=== PATIENT | male | born 1995 | race Two or more races ===

== ENCOUNTER 2019-02-28 00:48 | Emergency (ER) | payer BC ==
[~2019-02-28] VITALS: Ht 182.9 cm; Wt 81.6 kg
--- NOTE | 2019-02-28 00:52 | ED.ADGEN ---
Adult General Chief Complaint Chief Complaint ".. I was playing a video game..and got mad and kicked the bed,.,.and hurt my foot.," HPI HPI Patient is a 24 year old male who presents with above hx and complaints of foot pain distal 5th meta tarsal Rt. foot. Pt. unable to bear wt. because of pain. Distal neurovascular intact. + foot squeeze marked increase in pain. Review of Systems Review of Systems Constitutional: Denies fever or chills [] Eyes: Denies change in visual acuity, redness, or eye pain [] HENT: Denies nasal congestion or sore throat [] Respiratory: Denies cough or shortness of breath [] Cardiovascular: No additional information not addressed in HPI [] GI: Denies abdominal pain, nausea, vomiting, bloody stools or diarrhea [] : Denies dysuria or hematuria [] Musculoskeletal: Denies back pain or joint pain [complaints of right foot pain Integument: Denies rash or skin lesions [] Neurologic: Denies headache, focal weakness or sensory changes [] Endocrine: Denies polyuria or polydipsia [] All other systems were reviewed and found to be within normal limits, except as documented in this note. Family History Family History Noncontributory Current Medications Current Medications Current Medications Medications (Trade) Dose Ordered Sig/Cal Start Time Stop Time Status Last Admin Dose Admin Hydrocodone Bitartrate/ Ibuprofen (Vicoprofen 7.5-200) 2 tab 1X ONCE 02/28/19 01:30 02/28/19 02:06 DC 02/28/19 01:35 2 TAB Allergies Allergies Allergies Coded Allergies Type Severity Reaction Last Updated Verified No Known Drug Allergies 02/28/19 No Physical Exam Physical Exam Constitutional: Well developed, well nourished, no acute distress, non-toxic appearance. [] HENT: Normocephalic, atraumatic, bilateral external ears normal, oropharynx moist, no oral exudates, nose normal. [] Eyes: PERRLA, EOMI, conjunctiva normal, no discharge. [] Neck: Normal range of motion, no tenderness, supple, no stridor. [] Cardiovascular:Heart rate regular rhythm, no murmur [] Lungs & Thorax: Bilateral breath sounds clear to auscultation [] Abdomen: Bowel sounds normal, soft, no tenderness, no masses, no pulsatile masses. [] Skin: Warm, dry, no erythema, no rash. [] Back: No tenderness, no CVA tenderness. [] Extremities: No tenderness, no cyanosis, no clubbing, ROM intact, no edema. [] Except findings of foot pain as per history of present illness Neurologic: Alert and oriented X 3, normal motor function, normal sensory function, no focal deficits noted. [] Psychologic: Affect normal, judgement normal, mood normal. [] Current Patient Data Vital Signs Vital Signs Date Time Temp Pulse Resp B/P (MAP) Pulse Ox O2 Delivery O2 Flow Rate FiO2 02/28/19 01:00 98.6 73 18 100 Room Air EKG EKG [] Radiology/Procedures Radiology/Procedures My interpretation x-ray shows possible distal fifth metatarsal fracture- nondisplaced[] Course & Med Decision Making Course & Med Decision Making Pertinent Labs and Imaging studies reviewed. (See chart for details). Distal neurovascular intact after application of Shaka wrap. Patient giving crutch instructions. Ice, elevation, rest, Tylenol and ibuprofen for pain. Follow-up primary care. Wear a stiff shoe [] Final Impression Final Impression 1. Rt foot[]- distal fifth metatarsal fracture-nondisplaced 2. Contusion Dragon Disclaimer Dragon Disclaimer This electronic medical record was generated, in whole or in part, using a voice recognition dictation system. Discharge Summary Visit Information Final Diagnosis Problems Medical Problems: (1) Contusion Status: Acute (2) Metatarsal fracture Status: Acute Brief Hospital Course Allergies Allergies Coded Allergies Type Severity Reaction Last Updated Verified No Known Drug Allergies 02/28/19 No Vital Signs Vital Signs Date Time Temp Pulse Resp B/P (MAP) Pulse Ox O2 Delivery O2 Flow Rate FiO2 02/28/19 01:00 98.6 73 18 100 Room Air Brief Hospital Course Mr. Radford is a 24 old male who presented with hx of kicking bed while playing a computer game. Discharge Information Condition at Discharge: Improved, Stable Disposition/Orders: D/C to Home Dischare Medications Current Medications Hydrocodone Bitartrate/ Ibuprofen (Vicoprofen 7.5-200) 2 tab 1X ONCE PO Last administered on 02/28/19at 01:35; Admin Dose 2 TAB; Start 02/28/19 at 01:30; Stop 02/28/19 at 02:06; Status DC Dragon Disclaimer This chart was dictated in whole or in part using Voice Recognition software in a busy, high-work load, and often noisy Emergency Department environment. It may contain unintended and wholly unrecognized errors or omissions. ANDREW CHERRY MD February 28, 2019 00:52
[2019-02-28 01:00] VITALS: BP 124/79
[2019-02-28] MEDS ORDERED: HYDROcodon/IBUPROFEN 7.5/200MG 1 TAB TABLET PO ONE (01:30)
--- NOTE | 2019-02-28 07:43 | RAD ---
EXAM: Right foot, 3 views. HISTORY: Trauma. COMPARISON: None. FINDINGS: 3 views of the right foot are obtained. There is slight cortical irregularity along the lateral aspect of the fifth metatarsal head. This is only seen on a single projection. IMPRESSION: Slight cortical irregularity along the lateral aspect of the fifth metatarsal head. This is only seen on a single projection and may be due to an osseous ridge or nondisplaced fracture. Correlate for pain in this location. Electronically signed by: Holly Noel MD (02/28/2019 7:41 AM) [facility]
== END 2019-02-28 01:40 | disposition home or self-care (01) ==
LOC: ER 00:48
DX: S92.354A Nondisplaced fracture of fifth metatarsal bone, right foot, initial encounter for closed fracture (principal); W22.8XXA Striking against or struck by other objects, initial encounter; Y93.C1 Activity, computer keyboarding; Y92.89 Other specified places as the place of occurrence of the external cause; Y99.8 Other external cause status
CPT/HCPCS: 73630; 99284

== ENCOUNTER 2020-01-30 02:31 | Emergency (ER) | payer BC ==
[~2020-01-30] VITALS: Ht 182.9 cm; Wt 79.4 kg
--- NOTE | 2020-01-30 02:37 | PHYS DOC ---
Past History Past Medical History: No Pertinent History Past Surgical History: No Surgical History Alcohol Use: Rarely Drug Use: None Adult General Chief Complaint Chief Complaint: ..."I got this really bad pain.. in my flank and abdomen.. it runs down from my back to my right nut... I did skip off at about 8 pm.. but the pain woke me up from sleep at about 2:00.. it is realy bad..." [facility] HPI Patient is a 25 year old male who presents with above hx and complaints of severe right flank abdomen pain that radiates into his right testicle. Patient states he is also having severe nausea with pain. Patient denies any recent dysuria or penile discharge. He states he is not sexually active. Patient's right testicle is elevated however patient states it is in normal position for him. Patient denies any instrumentation. Did masturbate at 2000 hours at that time had no pain. Patient states he had no problems with ejaculation . Patient denies any history of trauma. Patient denies history of previous kidney stones or colitis with him or family members. Patient denies any problems with defecation, some hx of constipation.. Patient currently rating his pain as 10 out of 10. Patient's right testicle is not particularly tender on exam but does have right flank pain with percussion that radiates into right lower abdomen. The pain does seems to radiate into right testicle on percussion.. There is no known family history of renal stones, colitis or inflammatory bowel disorders. 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 No recent travel outside the [place] area. No history of specific ill contacts. Pt. follows with Dr. Estrella. Review of Systems Review of Systems Constitutional: Denies fever or chills [] Eyes: Denies change in visual acuity, redness, or eye pain [] HENT: Denies nasal congestion or sore throat [] Respiratory: Denies cough or shortness of breath [] Cardiovascular: No additional information not addressed in HPI [] GI: Complaints of severe right flank abdominal pain, nausea. Pain radiates from right flank into right testicle.. Patient complaints of vomiting and did vomit in the emergency department.. Patient denies, vomiting, bloody stools or diarr hea []does have history of constipation. : Denies dysuria or hematuria [] Musculoskeletal: Complaints of right flank back pain. Integument: Denies rash or skin lesions [] Neurologic: Denies headache, focal weakness or sensory changes [] Endocrine: Denies polyuria or polydipsia [] All other systems were reviewed and found to be within normal limits, except as documented in this note. Family History Family History Noncontributory Current Medications Current Medications See nursing for home meds Allergies Allergies Allergies Coded Allergies Type Severity Reaction Last Updated Verified No Known Drug Allergies 02/28/19 No Physical Exam Physical Exam Constitutional: In acute distress, non-toxic appearance. [] HENT: Normocephalic, atraumatic, bilateral external ears normal, oropharynx moist, no oral exudates, nose normal. Small goatee. Eyes: PERRLA, EOMI, conjunctiva normal, no discharge. [Glasses Neck: Normal range of motion, no tenderness, supple, no stridor. [] Cardiovascular:Heart rate regular rhythm, no murmur [] Lungs & Thorax: Bilateral breath sounds equal at apex on auscultation [] Abdomen: Bowel sounds decreased, soft, right flank and lower abdomen tenderness, no masses, no pulsatile masses. Circumcised male. Right testicle lies high no marked tenderness on palpation. Mild rebound to right flank and lower abdomen. No penile discharge detected. Distended abdomen. Skin: Warm, dry, no erythema, no rash. Capillary refills less than 2 seconds. Back: No tenderness, no CVA tenderness. [] Extremities: No tenderness, no cyanosis, no clubbing, ROM intact, no edema. No true psoas sign. Neurologic: Alert and oriented X 3, normal motor function, normal sensory function, no focal deficits noted. [] Psychologic: Affect anxious, judgement normal, mood normal. [] EKG EKG [] Radiology/Procedures Radiology/Procedures [[address] [address] IMAGING REPORT Signed PATIENT: TESS HINES ACCOUNT: [id number] : 1995 LOCATION: ER AGE: 25 SEX: M EXAM STATUS: PRE ER ORD. PHYSICIAN: ANDREW CHERRY MD REASON: Rt.Flank and testicle pain PROCEDURE: ACUTE ABDOMEN SERIES EXAM: 2 VIEW ABDOMEN WITH ONE VIEW CHEST. HISTORY: Right flank pain. COMPARISON: Today's CT. FINDINGS: A frontal view of the chest and supine/upright views of the abdomen are obtained. There are no confluent infiltrates. There is no pneumothorax or pleural effusion. The heart is not enlarged. There is no pneumoperitoneum. There are no distended small bowel loops or significant air-fluid levels. There is gas distally. The right ureterovesical junction calculus and left renal calculus noted on CT are not appreciable by this technique. IMPRESSION: 1. No confluent infiltrates. 2. No evidence of obstruction. 3. Refer to CT for description of nephroureterolithiasis. Electronically signed by: Rocco Gardner MD (01/30/2020 4:15 AM) [facility] DICTATED AND SIGNED BY: MIKE GARDNER MD DATE: 01/30/20 0415 CC: ANDREW CHERRY MD; KEVIN ESTRELLA MD ~ ][address] [place] [address] IMAGING REPORT Signed PATIENT: TESS HINES ACCOUNT: [id number] : 1995 LOCATION: ER AGE: 25 SEX: M EXAM STATUS: PRE ER ORD. PHYSICIAN: ANDREW CHERRY MD REASON: Rt flank and testicle pain PROCEDURE: CT ABDOMEN PELVIS WO CONTRAST EXAM: CT ABDOMEN/PELVIS WITHOUT CONTRAST. HISTORY: Right flank and testicular pain. TECHNIQUE: Computed tomography of the abdomen and pelvis was performed without intravenous contrast. One or more of the following individualized dose reduction techniques were utilized for this examination: 1. Automated exposure control. 2. Adjustment of the mA and/or kV according to patient size. 3. Use of iterative reconstruction technique. COMPARISON: None. FINDINGS: Lung windows through the visualized portions of the bases reveal no abnormality. Bone windows reveal no suspicious lesions. A calculus at the right ureterovesical junction measures 2 mm. There is mild right hydronephrosis and hydroureter with periureteral stranding. Increased attenuation within the right renal collecting system is consistent with a component of hematuria. There is a 2 mm calculus in the left interpolar region. There are no left ureteral calculi. There are no focal renal lesions. The liver, gallbladder, pancreas, adrenal glands, and spleen are unremarkable without contrast. The appendix is not inflamed. There is no small bowel obstruction. IMPRESSION: 1. 2 mm right ureterovesical junction calculus with mild proximal obstructive findings. 2. 2 mm left renal calculus. Electronically signed by: Rocco Gardner MD (01/30/2020 4:14 AM) [facility] DICTATED AND SIGNED BY: MIKE GARDNER MD DATE: 01/30/20413 CC: ANDREW CHERRY MD; KEVIN ESTRELLA MD ~ Course & Med Decision Making Course & Med Decision Making Pertinent Labs and Imaging studies reviewed. (See chart for details) Pt. to start clear fluid diet only x 2 days. Push fluids. Take Zofran 8 up 4 x day for active vomiting. Tylenol and Ibuprofen for pain. Marked pain take Vicoprofen. Save stone if passed. Take Levaquin 500 x 3 days. Follow up with Primary. Must stay hydrated. Practice Social distance. Follow with CDC for up to date recommendations and information on Covid-19. Impression: 1. Right flank and abdomen pain 2. Mild Leukocytosis with Hypochromic and Microcytic Indices 3. Constipation 4. Renal Colic with distal Rt stone Hydronephrosis/ Hydroureter and Lt.renal calculus [] Dragon Disclaimer Dragon Disclaimer This electronic medical record was generated, in whole or in part, using a voice recognition dictation system. Departure Departure: Disposition: 01 HOME/RESIDENCE PRIOR TO ADM Condition: STABLE Referrals: KEVIN ESTRELLA MD (PCP) Scripts Levofloxacin (LEVAQUIN) 500 Mg Tablet 500 MG PO DAILY for Leukocytosis for 3 Days, #3 TAB Prov: ANDREW CHERRY MD 01/30/20 Ondansetron Hcl (ZOFRAN) 8 Mg Tablet 8 MG PO QIDPRN PRN for for active vomiting, #30 BOTTLE Prov: ANDREW CHERRY MD 01/30/20 Hydrocodone/Ibuprofen (HYDROCODONE-IBUPROFEN 7.5-200 ) 1 Each Tablet 1 TAB PO PRN Q6HRS PRN for PAIN, #30 TAB 0 Refills Prov: ANDREW CHERRY MD 01/30/20 Dragon Disclaimer This chart was dictated in whole or in part using Voice Recognition software in a busy, high-work load, and often noisy Emergency Department environment. It may contain unintended and wholly unrecognized errors or omissions. ANDREW CHERRY MD Jan 30, 2020 02:37
[2020-01-30 02:40] VITALS: BP 128/76
[2020-01-30] MEDS ORDERED: ONDANSETRON PF 4 MG/2 ML VIAL. ONE (03:00)
[2020-01-30] MEDS ORDERED: KETOROLAC 30 MG/ML VIAL. ONE (03:00)
[2020-01-30] MEDS ORDERED: IV RINGERS SOLUTION,LACTATED 1,000 ML IV SCH (03:00)
[2020-01-30] MEDS ORDERED: ONDANSETRON PF 4 MG/2 ML VIAL. IVP ONE (03:00)
[2020-01-30] MEDS ORDERED: KETOROLAC 30 MG/ML VIAL. IVP ONE (03:00)
[2020-01-30 03:22] LABS: BASO # 0.1 x10^3/uL (0.0-0.2); BASO % 1 % (0-3); EOS # 0.4 x10^3/uL (0.0-0.7); EOS % 3 % (0-3); HEMATOCRIT 47.1 % (39.0-53.0); HEMOGLOBIN 15.1 g/dL (13.0-17.5); LYMPH % 38 % (24-48); MEAN CORPUSCULAR HEMOGLOBIN 24 pg (25-35); MEAN CORPUSCULAR HGB CONC 32 g/dL (31-37); MEAN CORPUSCULAR VOLUME 76 fL (79-100); MONO # 0.9 x10^3/uL (0.0-1.1); MONO % 7 % (0-9); NEUT # 6.8 x10^3uL (1.8-7.7); NEUT % 52 % (31-73); PLATELET COUNT 368 x10^3/uL (140-400); RED BLOOD COUNT 6.17 x10^6/uL (4.30-5.70); RED CELL DISTRIBUTION WIDTH 16.2 % (11.5-14.5); WHITE BLOOD COUNT 13.2 x10^3/uL (4.0-11.0)
[2020-01-30 03:29] LABS: BILIRUBIN,URINE NEG (NEG); CLARITY,URINE CLEAR; COLOR,URINE YELLOW; GLUCOSE,URINE NEG (NEG)
[2020-01-30 03:30] LABS: BACTERIA,URINE 0 /HPF (0-FEW); NITRITE,URINE NEG (NEG); RBC,URINE 0 /HPF (0-2); SQUAMOUS EPITHELIAL CELL,UR OCC /LPF; UROBILINOGEN,URINE 0.2 mg/dL (0.2 mg/dL); WBC,URINE RARE /HPF (0-4)
[2020-01-30 03:33] LABS: CREATININE 1.1 mg/dL (0.7-1.3); GFR 82.2; POTASSIUM 3.8 mmol/L (3.5-5.1)
[2020-01-30 03:38] LABS: BARBITURATES NEG (NEG); BENZODIAZEPINES NEG (NEG); CANNABINOIDS NEG (NEG); COCAINE NEG (NEG); METHADONE NEG (NEG); OPIATES NEG (NEG); PHENCYCLIDINE NEG (NEG)
[2020-01-30 03:39] LABS: ALBUMIN 4.5 g/dL (3.4-5.0); DIRECT BILIRUBIN 0.2 mg/dL (0.0-0.2); MAGNESIUM 1.9 mg/dL (1.8-2.4); TOTAL BILIRUBIN 0.6 mg/dL (0.2-1.0); TOTAL PROTEIN 7.7 g/dL (6.4-8.2)
[2020-01-30 03:41] LABS: AMPHETAMINE/METHAMPHETAMINE NEG (NEG)
[2020-01-30] MEDS ORDERED: MAGNESIUM HYDROXIDE 2,400 MG/30 ML ORAL.SUSP. PO ONE (03:45)
[2020-01-30] MEDS ORDERED: MAGNESIUM HYDROXIDE 2,400 MG/30 ML ORAL.SUSP. ONE (03:52)
[2020-01-30] MEDS ORDERED: MORPHINE SULFATE 10 MG/ML SYRINGE. ONE (03:56)
[2020-01-30] MEDS ORDERED: MORPHINE SULFATE 10 MG/ML SYRINGE. SQ ONE (04:00)
--- NOTE | 2020-01-30 04:17 | RAD ---
EXAM: CT ABDOMEN/PELVIS WITHOUT CONTRAST. HISTORY: Right flank and testicular pain. TECHNIQUE: Computed tomography of the abdomen and pelvis was performed without intravenous contrast. One or more of the following individualized dose reduction techniques were utilized for this examination: 1. Automated exposure control. 2. Adjustment of the mA and/or kV according to patient size. 3. Use of iterative reconstruction technique. COMPARISON: None. FINDINGS: Lung windows through the visualized portions of the bases reveal no abnormality. Bone windows reveal no suspicious lesions. A calculus at the right ureterovesical junction measures 2 mm. There is mild right hydronephrosis and hydroureter with periureteral stranding. Increased attenuation within the right renal collecting system is consistent with a component of hematuria. There is a 2 mm calculus in the left interpolar region. There are no left ureteral calculi. There are no focal renal lesions. The liver, gallbladder, pancreas, adrenal glands, and spleen are unremarkable without contrast. The appendix is not inflamed. There is no small bowel obstruction. IMPRESSION: 1. 2 mm right ureterovesical junction calculus with mild proximal obstructive findings. 2. 2 mm left renal calculus. Electronically signed by: Rocco Gardner MD (01/30/2020 4:14 AM) [facility]
--- NOTE | 2020-01-30 04:18 | RAD ---
EXAM: 2 VIEW ABDOMEN WITH ONE VIEW CHEST. HISTORY: Right flank pain. COMPARISON: Today's CT. FINDINGS: A frontal view of the chest and supine/upright views of the abdomen are obtained. There are no confluent infiltrates. There is no pneumothorax or pleural effusion. The heart is not enlarged. There is no pneumoperitoneum. There are no distended small bowel loops or significant air-fluid levels. There is gas distally. The right ureterovesical junction calculus and left renal calculus noted on CT are not appreciable by this technique. IMPRESSION: 1. No confluent infiltrates. 2. No evidence of obstruction. 3. Refer to CT for description of nephroureterolithiasis. Electronically signed by: oRcco Gardner MD (01/30/2020 4:15 AM) [facility]
[2020-01-30] MEDS ORDERED: HYDR-1179 PO (04:39)
[2020-01-30] MEDS ORDERED: LEVO500T59 PO (04:39)
[2020-01-30] MEDS ORDERED: ONDA8TAB9 PO (04:39)
[2020-01-30] MEDS ORDERED: levoFLOXacin 500 MG TABLET PO ONE (04:45)
[2020-01-30] MEDS ORDERED: levoFLOXacin 500 MG TABLET ONE (04:50)
== END 2020-01-30 05:00 | disposition home or self-care (01) ==
LOC: ER 02:31
DX: N13.2 Hydronephrosis with renal and ureteral calculous obstruction (principal); K59.00 Constipation, unspecified; D72.829 Elevated white blood cell count, unspecified; R11.2 Nausea with vomiting, unspecified
CPT/HCPCS: 36415; 74022; 74176; 80048; 80076; 80307; 81001; 82150; 83690; 83735; 85025; 85610; 85730; 96361; 96372; 96374; 96375; 99285; J1885; J2270; J2405; J7120